=== PATIENT | female | born 1990 | race Hispanic/Latino ===

== ENCOUNTER 2019-03-29 05:34 | Inpatient (IN) ==
[2019-03-29 06:17] LABS: URINE SOURCE VOIDED
[2019-03-29] MEDS ORDERED: STADOL IV PRN (06:25)
[2019-03-29] MEDS ORDERED: LR 500 ML IV ONE (06:25)
[2019-03-29] MEDS ORDERED: PEPCID PO PRN ×2 (06:25)
[2019-03-29] MEDS ORDERED: KEFZOL 2 GM/D5W 2 GM/50 ML IVPB IV PRN (06:25)
[2019-03-29] MEDS ORDERED: PEPCID IV PRN (06:25)
[2019-03-29] MEDS ORDERED: ZOFRAN IV PRN (06:25)
[2019-03-29] MEDS ORDERED: TYLENOL PO PRN (06:25)
[2019-03-29] MEDS ORDERED: REGLAN PO PRN (06:25)
[2019-03-29] MEDS ORDERED: SODIUM CHLORIDE 0.9% INJ SCH (06:30)
[2019-03-29 06:47] LABS: BILIRUBIN URINE NEGATIVE (NEGATIVE); BLOOD URINE NEGATIVE (NEGATIVE); COLOR YELLOW; GLUCOSE URINE NEGATIVE (NEGATIVE); KETONE URINE NEGATIVE (NEGATIVE); LEUKOCYTES URINE TRACE (NEGATIVE); NITRITE URINE NEGATIVE (NEGATIVE); PROTEIN URINE TRACE mg/dL (NEGATIVE); SP GRAVITY URINE 1.024; TURBIDITY URINE CLEAR (CLEAR); UROBILINOGEN URINE NORMAL (NORMAL)
[2019-03-29 06:55] LABS: UR AMPHETAMINES QUAL NONE DETECTED (NONE DETECT); UR BARBITUATES QUAL NONE DETECTED (NONE DETECT); UR BENZODIAZEPIN QUAL NONE DETECTED (NONE DETECT); UR CANNABINOIDS QUAL NONE DETECTED (NONE DETECT); UR COCAINE QUAL NONE DETECTED (NONE DETECT); UR METHADONE QUAL NONE DETECTED (NONE DETECT); UR OPIATES QUAL NONE DETECTED (NONE DETECT); UR OXYCODONE QUAL NONE DETECTED (NONE DETECT); UR PCP QUAL NONE DETECTED (NONE DETECT)
[2019-03-29] MEDS ORDERED: AMPICILLIN 2 GM in NS 100 ML IV ONE (07:03)
--- NOTE | 2019-03-29 07:04 | HISTORY AND PHYSICAL ---
ALLERGIES: None. HISTORY OF PRESENT ILLNESS: This patient is a 28-year-old, 3, para 2, who presented to the hospital in active labor. She has had no care. With the java developer with security clearance, the following history was obtained. Alert, oriented, in no acute distress PAST MEDICAL HISTORY: Totally benign. She had no previous surgeries. She had 2 normal spontaneous vaginal deliveries without complication. She had no known drug allergies. She did not take any medications. She did not smoke or drink. She says her last menstrual period was sometime in June, no hx of ultrasound with this . ROS: un remarkable PHYSICAL EXAMINATION: VITAL SIGNS: Stable with a temperature of 98.1 degrees, pulse is 67, respiratory 20, and a blood pressure is 126/69. CARDIOVASCULAR: Negative ABDOMEN: Soft and nontender. She seemed to be small for gestational age of approximately 37 weeks by last menstrual period in June. She may be as little as 35 weeks. Extremities ; WNL, no abnormalities noted. PELVIS: Her pelvic exam is 5 to 6 cm, completely effaced, 0 station. Bag of waterman intact. Vertex presentation. Vulva normal, no lesions. FHR reactive, category 1, contractions irregular ASSESSMENT: Multipara in active labor, no care, unknown GBS status PLAN: Expectant management, obtain labs , GBS prophylaxis. Augment labor as needed [facility]
[2019-03-29] MEDS: LR 1,000 ML IV SCH ×2 (07:06→20:18)
[2019-03-29] MEDS ORDERED: MINERAL OIL TOP PRN (07:27)
[2019-03-29] MEDS ORDERED: XYLOCAINE-MPF 1% INJ PRN ×2 (07:27→10:54)
[2019-03-29 07:34] LABS: BASO# 0.07 X1000 (0.0-0.2); BASO% 0.9 % (0.0-0.8); EOS# 0.14 X1000 (0.0-0.7); EOS% 1.9 % (0.0-10.0); HEMATOCRIT 33.7 % (37.0-47.0); HEMOGLOBIN 11.2 g/dL (12.0-16.0); IMM GRAN# 0.04 X1000 (0.0-0.04); IMM GRAN% 0.5 % (0.0-0.5); LYMPH# 1.28 X1000 (1.2-3.4); MCH 30.2 PG (27-31); MCHC 33.2 g/dL (33-37); MCV 90.8 FL (81-99); MONO# 0.46 X1000 (0.11-0.59); MONO% 6.1 % (1.7-9.3); MPV 10.7 FL (7.4-10.4); NEUT# 5.55 X1000 (1.4-6.5); NEUT% 73.6 % (42.2-75.2); PLT 216 X1000 (130-400); RBC 3.71 XMIL (4.2-5.4); RDW 14.7 % (11.5-14.5); WBC 7.54 X1000 (4.8-10.8)
[2019-03-29 08:28] LABS: RPR NON-REACTIVE (NONREACTIVE); RUBELLA SCREEN IMMUNE (IMMUNE)
[2019-03-29 08:29] LABS: RAPID HIV PRESUMPTIVE NEGATIVE
[2019-03-29] MEDS ORDERED: AMBIEN PO PRN (10:54)
[2019-03-29] MEDS ORDERED: MINERAL OIL PO PRN (10:54)
[2019-03-29] MEDS ORDERED: BENADRYL PO PRN (10:54)
[2019-03-29] MEDS ORDERED: PERI MEDS (DERMOPLAST/NUPERCAINAL/TUCKS) MISC PRN (10:54)
[2019-03-29] MEDS ORDERED: CYTOTEC PO PRN (10:54)
[2019-03-29] MEDS ORDERED: M-M-R II VACCINE SUBQ ONE (10:54)
[2019-03-29] MEDS ORDERED: ATARAX PO PRN (10:54)
[2019-03-29] MEDS ORDERED: BENADRYL IV PRN (10:54)
[2019-03-29] MEDS ORDERED: PITOCIN IM PRN (10:54)
[2019-03-29] MEDS ORDERED: BOOSTRIX VACCINE IM ONE (10:54)
[2019-03-29] MEDS ORDERED: HYDROXYZINE IM PRN (10:54)
[2019-03-29] MEDS ORDERED: PITOCIN 30 UNITS/NS 30 UNIT/500 ML IV.SOLN IV SCH (11:00)
[2019-03-29] MEDS ORDERED: AMPICILLIN 1 GM in NS 50 ML IV SCH (11:04)
[2019-03-29] MEDS: PITOCIN 30 UNITS/NS 30 UNIT/500 ML IV.SOLN IV SCH ×2 (11:14→13:32)
[2019-03-29] MEDS: MOTRIN PO PRN (11:14)
[2019-03-29] MEDS: PERCOCET-10 PO PRN (12:19)
[2019-03-29] MEDS ORDERED: METHERGINE ONE ×2 (13:27→13:29)
--- NOTE | 2019-03-29 13:33 | PROVIDER PROGRESS NOTE ---
- Subjective Called to see patient for excessive bleeding On exam, bimanual clots expressed, uterus firmed to 15 week size Methergine given and finch placed Watch closely Physical Exam Objective Vital Signs - 8 hr 03/29/19 05:39 03/29/19 07:04 03/29/19 07:09 Temperature 98.1 F 98 F 97.8 F Pulse Rate 67 71 64 Respiratory Rate 20 20 18 Blood Pressure 126/69 115/68 111/76 O2 Sat by Pulse Oximetry 99 99 100 03/29/19 10:13 03/29/19 12:05 03/29/19 12:25 Temperature 98.6 F Pulse Rate 64 61 56 L Respiratory Rate 20 18 18 Blood Pressure 155/59 116/58 103/55 O2 Sat by Pulse Oximetry 100 99 99 03/29/19 12:58 Temperature Pulse Rate 71 Respiratory Rate 18 Blood Pressure 99/59 O2 Sat by Pulse Oximetry 99 Active Medications Generic Name Dose Route Start Last Admin Trade Name Freq PRN Reason Stop Dose Admin Acetaminophen 650 mg 03/29/19 06:25 Tylenol PO Q4-6H PRN PRN Headache Benzocaine 1 each 03/29/19 10:54 Kristina Meds (Dermoplast/Nupercainal/Tucks) MISC 3-4XDAY PRN PRN episiotomy/hemorrhoids Butorphanol Tartrate 2 mg 03/29/19 06:25 Stadol IV PRN PRN Pain Diphenhydramine HCl 12.5 mg 03/29/19 10:54 Benadryl IV Q4H PRN PRN Itching Diphenhydramine HCl 25 mg 03/29/19 10:54 Benadryl PO Q4H PRN PRN Itching Famotidine 20 mg 03/29/19 06:25 Pepcid PO ONCE PRN PRN section Famotidine 40 mg 03/29/19 06:25 Pepcid PO Q12H PRN PRN GI upset or indigestion Famotidine 20 mg 03/29/19 06:25 Pepcid IV Q12H PRN PRN GI upset or indigestion Hydroxyzine HCl 50 mg 03/29/19 10:54 Atarax PO Q3-4H PRN PRN Nausea Hydroxyzine HCl 50 mg 03/29/19 10:54 Hydroxyzine IM Q3-4H PRN PRN Nausea Cefazolin Sodium/Dextrose 2 gm in 50 mls @ 50 mls/hr 03/29/19 06:25 Kefzol 2 Gm/D5w IV ONCE PRN PRN section Lactated Ringer's 1,000 mls @ 125 mls/hr 03/29/19 06:30 03/29/19 07:06 Lr IV 125 mls/hr .Q8H DEBORAH Administration Oxytocin/Sodium Chloride 30 unit in 500 mls @ 0 mls/hr 03/29/19 06:30 03/29/19 13:32 Pitocin 30 Units/Ns IV 125 mls/hr .Q0M DEBORAH Administration As Directed Ampicillin Sodium 1 gm/ Sodium 50 mls @ 100 mls/hr 03/29/19 11:04 Chloride IV Q4H DEBORAH Oxytocin/Sodium Chloride 30 unit in 500 mls @ 500 mls/hr 03/29/19 11:00 Pitocin 30 Units/Ns IV .Q1H DEBORAH Ibuprofen 800 mg 03/29/19 10:54 03/29/19 11:14 Motrin PO 800 mg Q8H PRN PRN Administration cramping Lidocaine HCl 30 ml 03/29/19 07:27 Xylocaine-Mpf 1% INJ PRN PRN for delivery Lidocaine HCl 30 ml 03/29/19 10:54 Xylocaine-Mpf 1% INJ PRN PRN Perineal repair Metoclopramide HCl 10 mg 03/29/19 06:25 Reglan PO ONCE PRN PRN section Mineral Oil 30 ml 03/29/19 07:27 Mineral Oil TOP PRN PRN delivery Mineral Oil 30 ml 03/29/19 10:54 Mineral Oil PO PRN PRN Perineal massage Misoprostol 800 microgm 03/29/19 10:54 Cytotec PO PRN PRN Severe bleeding Ondansetron HCl 4 mg 03/29/19 06:25 Zofran IV PRN PRN Nausea Oxycodone/Acetaminophen 1 each 03/29/19 12:12 03/29/19 12:19 Percocet-10 PO 1 each Q6H PRN PRN Administration Pain Oxytocin 20 unit 03/29/19 10:54 Pitocin IM PRN PRN Severe bleeding Senna/Docusate Sodium 1 each 03/29/19 21:00 Pericolace PO QHS DEBORAH Sodium Chloride 5 - 10 ml 03/29/19 06:30 Sodium Chloride 0.9% INJ DIRECTED DEBORAH Zolpidem Tartrate 10 mg 03/29/19 10:54 Ambien PO HS PRN PRN Sleep Laboratory Results - last 24 hr 03/29/19 03/29/19 03/29/19 05:54 05:54 07:00 WBC RBC Hgb Hct MCV MCH MCHC RDW Std Deviation Plt Count MPV Immature Gran % (Auto) Neut % (Auto) Lymph % (Auto) [place] % (Auto) Eos % (Auto) Baso % (Auto) Immature Gran # (Auto) Neut # (Auto) Lymph # (Auto) [place] # (Auto) Eos # (Auto) Baso # (Auto) Glucose 82 Urine Source VOIDED Urine Color YELLOW Urine Turbidity CLEAR Urine pH 7.0 Ur Specific [place] 1.024 Urine Protein TRACE A Ur Glucose (Stick) NEGATIVE Ur Ketones (Stick) NEGATIVE Urine Blood NEGATIVE Urine Nitrite NEGATIVE Urine Bilirubin NEGATIVE Urobilinogen Dipstick NORMAL Urine Leukocytes TRACE A Urine Opiates Screen NONE DETECTED Ur Oxycodone Screen NONE DETECTED Ur Methadone, Qual NONE DETECTED Ur Barbiturates Screen NONE DETECTED Ur Phencyclidine Scrn NONE DETECTED Ur Amphetamines Screen NONE DETECTED U Benzodiazepines Scrn NONE DETECTED Urine Cocaine Screen NONE DETECTED U Cannabinoids Screen NONE DETECTED RPR HIV 1&2 Antibody Rapid Rubella Immunity Screen Blood Type Antibody Screen 03/29/19 03/29/19 03/29/19 07:00 07:00 07:00 WBC 7.54 RBC 3.71 L Hgb 11.2 L Hct 33.7 L MCV 90.8 MCH 30.2 MCHC 33.2 RDW Std Deviation 14.7 H Plt Count 216 MPV 10.7 H Immature Gran % (Auto) 0.5 Neut % (Auto) 73.6 Lymph % (Auto) 17.0 L [place] % (Auto) 6.1 Eos % (Auto) 1.9 Baso % (Auto) 0.9 H Immature Gran # (Auto) 0.04 Neut # (Auto) 5.55 Lymph # (Auto) 1.28 Deuel # (Auto) 0.46 Eos # (Auto) 0.14 Baso # (Auto) 0.07 Glucose Urine Source Urine Color Urine Turbidity Urine pH Ur Specific [place] Urine Protein Ur Glucose (Stick) Ur Ketones (Stick) Urine Blood Urine Nitrite Urine Bilirubin Urobilinogen Dipstick Urine Leukocytes Urine Opiates Screen Ur Oxycodone Screen Ur Methadone, Qual Ur Barbiturates Screen Ur Phencyclidine Scrn Ur Amphetamines Screen U Benzodiazepines Scrn Urine Cocaine Screen U Cannabinoids Screen RPR NON-REACTIVE HIV 1&2 Antibody Rapid PRESUMPTIVE NEGATIVE Rubella Immunity Screen IMMUNE Blood Type O POSITIVE Antibody Screen NEGATIVE
--- NOTE | 2019-03-29 14:41 | OPERATIVE NOTE ---
PROCEDURE DATE: 03/29/2019 FINDINGS: The patient delivered on 03/29/2019 at 10:38 a.m. Amniotic fluid was clear. The placenta delivered at 10:42 a.m., spontaneous, three-vessel cord. number was 1. Viable female. No resuscitation necessary. One nuchal cord. This was a normal spontaneous vaginal delivery over intact perineum. ANESTHESIA: None. EPISIOTOMY: None. LACERATION: None. REPAIR: None. ESTIMATED BLOOD LOSS: 200 mL. Patient with catheter with approximately 250 mL of clear urine due to full bladder. MATERNAL COMPLICATIONS: None.
[2019-03-29] MEDS ORDERED: HEMABATE IM ONE (14:55)
[2019-03-29 15:55] LABS: HIV ANTIBODY SCREEN SEE COMMENTS
[2019-03-29] MEDS: METHERGINE PO SCH ×2 (16:36→22:10)
[2019-03-29] MEDS ORDERED: FLU VACCINE IM ONE (19:30)
[2019-03-29] MEDS: PERICOLACE PO SCH (20:50)
[2019-03-30] MEDS: MOTRIN PO PRN ×2 (02:02→16:09)
[2019-03-30] MEDS: PERCOCET-10 PO PRN ×2 (02:02→08:30)
[2019-03-30] MEDS: LR 1,000 ML IV SCH ×3 (03:56→15:37)
[2019-03-30] MEDS: METHERGINE PO SCH (05:39)
[2019-03-30 07:28] LABS: HEMATOCRIT 31.4 % (37.0-47.0); HEMOGLOBIN 10.1 g/dL (12.0-16.0); MCH 30.1 PG (27-31); MCHC 32.2 g/dL (33-37); MCV 93.5 FL (81-99); MPV 10.5 FL (7.4-10.4); RBC 3.36 XMIL (4.2-5.4); RDW 14.9 % (11.5-14.5); WBC 8.2 X1000 (4.8-10.8)
[2019-03-30 08:11] LABS: HEPATITIS B SURFACE ANTIGEN SEE COMMENTS
--- NOTE | 2019-03-30 10:16 | OB/GYN PROGRESS NOTE ---
- Subjective S. Patient resting in bed. She has no complaints, ambulating well, and has light bleeding. She is bottle feeding. OB Physical Exam Vital Signs - 8 hr 03/30/19 05:35 Temperature 97.6 F Pulse Rate 69 Respiratory Rate 16 Blood Pressure 109/69 O2 Sat by Pulse Oximetry 99 - CONSTITUTIONAL General Appearance: appears well - HEAD, EARS, NOSE, MOUTH & THROAT HENMT: normocephalic/atraumatic - RESPIRATORY Respiratory: lungs clear - CARDIOVASCULAR Cardiovascular: regular rate, rhythm - GASTROINTESTINAL (ABDOMEN) Abdominal Exam: non tender (Uterus below the umbilicus) - MUSCULOSKELETAL Extremity: non-tender - PSYCHIATRIC Psych/Mental Status: normal mood/affect Active Medications Generic Name Dose Route Start Last Admin Trade Name Freq PRN Reason Stop Dose Admin Acetaminophen 650 mg 03/29/19 06:25 03/29/19 20:50 Tylenol PO 650 mg Q4-6H PRN PRN Administration Headache Benzocaine 1 each 03/29/19 10:54 03/29/19 20:51 Kristina Meds (Dermoplast/Nupercainal/Tucks) MISC 1 pkg 3-4XDAY PRN PRN Administration episiotomy/hemorrhoids Diphenhydramine HCl 12.5 mg 03/29/19 10:54 Benadryl IV Q4H PRN PRN Itching Diphenhydramine HCl 25 mg 03/29/19 10:54 Benadryl PO Q4H PRN PRN Itching Famotidine 20 mg 03/29/19 06:25 Pepcid PO ONCE PRN PRN section Famotidine 40 mg 03/29/19 06:25 Pepcid PO Q12H PRN PRN GI upset or indigestion Famotidine 20 mg 03/29/19 06:25 Pepcid IV Q12H PRN PRN GI upset or indigestion Hydroxyzine HCl 50 mg 03/29/19 10:54 Atarax PO Q3-4H PRN PRN Nausea Hydroxyzine HCl 50 mg 03/29/19 10:54 Hydroxyzine IM Q3-4H PRN PRN Nausea Lactated Ringer's 1,000 mls @ 125 mls/hr 03/29/19 06:30 03/30/19 08:23 Lr IV Not Given .Q8H DEBORAH Ibuprofen 800 mg 03/29/19 10:54 03/30/19 02:02 Motrin PO 800 mg Q8H PRN PRN Administration cramping Lidocaine HCl 30 ml 03/29/19 07:27 Xylocaine-Mpf 1% INJ PRN PRN for delivery Methylergonovine Maleate 0.2 mg 03/29/19 16:30 03/30/19 05:39 Methergine PO 0.2 mg TID DEBORAH Administration Metoclopramide HCl 10 mg 03/29/19 06:25 Reglan PO ONCE PRN PRN section Misoprostol 800 microgm 03/29/19 10:54 Cytotec PO PRN PRN Severe bleeding Ondansetron HCl 4 mg 03/29/19 06:25 Zofran IV PRN PRN Nausea Oxycodone/Acetaminophen 1 each 03/29/19 12:12 03/30/19 08:30 Percocet-10 PO 1 each Q6H PRN PRN Administration Pain Oxytocin 20 unit 03/29/19 10:54 Pitocin IM PRN PRN Severe bleeding Senna/Docusate Sodium 1 each 03/29/19 21:00 03/29/19 20:50 Pericolace PO 1 each QHS DEBORAH Administration Sodium Chloride 5 - 10 ml 03/29/19 06:30 Sodium Chloride 0.9% INJ DIRECTED DEBORAH Zolpidem Tartrate 10 mg 03/29/19 10:54 Ambien PO HS PRN PRN Sleep Laboratory Results - last 24 hr 03/29/19 03/29/19 03/30/19 07:00 08:29 05:55 WBC 8.20 RBC 3.36 L Hgb 10.1 L Hct 31.4 L MCV 93.5 MCH 30.1 MCHC 32.2 L RDW Std Deviation 14.9 H Plt Count 187 MPV 10.5 H Hep Bs Antigen SEE COMMENTS HIV 1&2 Antibody Screen SEE COMMENTS OB Assessment & Plan (1) care and examination Status: Acute Plan: Routine care, encourage ambulation
[2019-03-30] MEDS: PERICOLACE PO SCH (21:42)
[2019-03-31] MEDS: MOTRIN PO PRN (06:12)
[2019-03-31] MEDS: LR 1,000 ML IV SCH (06:27)
[2019-03-31 08:37] VITALS: BP 100/59
== END 2019-03-31 10:45 | disposition home or self-care (01) | DRG 807 ==
LOC: ED 05:34 → LD 06:00 → EDSTATUS 06:06 → LD 06:26
PROVIDERS: ADMIT Obstetrics & Gynecology; ATTEND Obstetrics & Gynecology